=== PATIENT | male | born 1985 | race Caucasian/White ===

== ENCOUNTER 2022-04-21 23:11 | Emergency (ER) | payer OTHER ==
[~2022-04-21] VITALS: Ht 167.6 cm; Wt 72.6 kg
[2022-04-21 23:21] VITALS: BP 155/79
[2022-04-21] MEDS ORDERED: IBUPROFEN 400 MG TABLET ONE (23:28)
[2022-04-21] MEDS ORDERED: IBUPROFEN 400 MG TABLET PO ONE (23:30)
== END 2022-04-21 23:38 | disposition home or self-care (01) ==
LOC: ER 23:13
DX: M79.672 Pain in left foot (principal); M79.671 Pain in right foot; F15.10 Other stimulant abuse, uncomplicated; I10 Essential (primary) hypertension